=== PATIENT | male | born 1955 | race Caucasian/White ===

== ENCOUNTER 2016-03-30 08:47 | Inpatient (IN) ==
--- NOTE | 2016-03-30 08:58 | EKG Report ---
Test Performed on : 03/30/2016 08:50:12 AM Test Reason : CP Blood Pressure : / mmHG Vent. Rate : 071 BPM Atrial Rate : 071 BPM P-R Int : 130 ms QRS Dur : 102 ms QT Int : 402 ms P-R-T Axes : 018 081 141 degrees QTc Int : 436 ms Normal sinus rhythm. Inferior infarct (cited on or before 30-JUL-2013) Anterior infarct (cited on or before 30-JUL-2013) ST & T wave abnormality, consider lateral ischemia Abnormal ECG When compared with ECG of 30-JUL-2013 16:10, Significant changes have occurred Unconfirmed Result
[2016-03-30] MEDS ORDERED: ASPIRIN PO ONE (09:01)
[2016-03-30] MEDS ORDERED: ZOFRAN IV ONE (09:01)
[2016-03-30] MEDS ORDERED: MORPHINE IV ONE (09:01)
[2016-03-30] MEDS ORDERED: LASIX IV ONE ×3 (09:01→23:44)
[2016-03-30] MEDS ORDERED: SOLU-MEDROL IV ONE (09:03)
[2016-03-30] MEDS ORDERED: ASPIRIN PO STA (09:03)
--- NOTE | 2016-03-30 09:10 | PROVIDER DOCUMENTATION ---
HPI-Respiratory General - General Chief Complaint: Shortness of Breath Stated Complaint: SOB Time Seen by Provider: 03/30/16 08:56 Source: patient Allergies/Adverse Reactions: Patient Allergies Allergy/AdvReac Type Severity Reaction Status Date / Time No Known Allergies Allergy Verified 03/30/16 08:54 Home Medications: Home Medication List Medication Instructions Recorded Confirmed Last Taken Type Aspirin 81 mg 05/25/14 05/25/14 05/25/14 History Digoxin [Lanoxin] 0.125 mcg 05/25/14 05/25/14 Unknown History Furosemide [Lasix] 20 mg 05/25/14 05/25/14 Unknown History Lisinopril 5 mg PO DAILY #30 tablet 05/25/14 Unknown Rx Losartan [Cozaar] 50 mg 05/25/14 05/25/14 Unknown History Metoprolol Tartrate 25 mg 05/25/14 05/25/14 Unknown History Metoprolol [Lopressor] 25 mg PO BID #60 tablet 05/25/14 Unknown Rx Nitroglycerin [Nitrostat] 0.4 mg 05/25/14 05/25/14 Unknown History Spironolactone [Aldactone] 25 mg 05/25/14 05/25/14 Unknown History - History of Present Illness-Resp Nature of Presenting Problem: Pt is 60 y/o M presents to the ED with SOB and fatigue. Pt states the symptoms have been present for one week but have got worse. Pt denies CP and states having a hx of cardiac issues in the past. Pt states having 3 WI and having one stent placed. Pt states taking a breathing treatment this morning with mild relief. Pt states he is a smoker. Pt states being shocked two weeks ago due to defibrillator Quality of Pain: reports: aching Severity in ED: reports: mild Onset/Duration: reports: 1 week ago Timing: reports: still present, getting worse Exposure: reports: unknown cause Cough Quality/Degree: reports: dry cough Episode Frequency: frequent episodes Current Respiratory Medication Therapy: Initiated see nurses note Modifying Factors: improves with: nothing Associated Symptoms: reports: cough, shortness of breath, other (fatigue). denies: chest pain/soreness, dizziness, earache, facial pain, fever/chills, flu- like symptoms, headache, heart racing, hurts to breathe, hyperventilating, lightheadedness, muscle/bodyaches, nasal congestion, nasal drainage, sinus pain , short of breath, sore throat, sweaty, wheezing Similar Symptoms Previously?: Yes Recently seen or treated by another doctor?: No Review of Systems - Adult - REVIEW OF SYSTEMS - ADULT Constitutional: reports: danita. denies: chills, fever Eyes: denies: blurred vision, double vision Ears, Nose, Mouth & Throat: denies: ear pain, nose pain, throat pain Cardiovascular: denies: chest pain, heart murmur, irregular heart rate Respiratory: reports: cough, shortness of breath. denies: wheezing Gastrointestinal: denies: abdominal pain, diarrhea, nausea, vomiting Genitourinary: denies: dysuria, hematuria Musculoskeletal: denies: bone pain, joint pain, neck pain Integumentary: denies: hives, itching Neurological: denies: dizziness/vertigo, headache/migraines Psychiatric: reports: no symptoms reported Endocrine: reports: no symptoms reported Hematologic/Lymphatic: reports: no symptoms reported Allergic/Immunologic: reports: no symptoms reported All Other Systems: Reviewed and Negative Past History - Adult - PAST MEDICAL HISTORY-ADULT Review of Records: reports: Nursing Assessment Review, Medications Reviewed, Social history reviewed & non-contributory. Major Childhood Illnesses: reports: denies history Cardiovascular: reports: cardiac disease, CHF, HTN, heart valve problem ( replacement), WI Respiratory: reports: denies history Gastrointestinal: reports: denies history Obstetrical/Gynecological: reports: denies history Genitourinary: reports: denies history Musculoskeletal: reports: denies history Neurological: reports: denies history Endocrine/Immune: reports: denies history Other Conditions: reports: denies history - PRIOR SURGERIES/PROCEDURES Surgical/Procedure History: reports: cardiac stent, other (Right hand surgery, ICD placement) - PRIOR HOSPITALIZATIONS Prior Hospitalizations: reports: none - IMMUNIZATION STATUS Childhood Immunizations: See Nurse Assessment Flu Vaccine: See Nurse Assessment - FAMILY HISTORY Family History: reviewed, not pertinent - SOCIAL HISTORY Smoking: cigarettes, greater than 1 pack/day Provider spent 3-5 mins advising pt. on dangers of tobacco.: Discussed manners to quit use, and f/u contacts for add'l counseling. Substance Use: alcohol Alcohol Use Frequency: occasionally Number of drinks per typical drinking period:: 2 drinks Living Situation: family Physical Exam-General - PHYSICAL EXAM-ADULT Initial Vital Signs Reviewed: Yes - CONSTITUTIONAL General Appearance: alert, mild distress, slow to respond. negative: appears well (ill in appearance) - EYES Eyes: PERRL/EOMI, pink conjunctivae, fundi clear, no AV nicking - HEAD, EARS, NOSE, MOUTH & THROAT HENMT: normocephalic/atraumatic, moist mucous membranes, normal ENT inspection, TMs normal, pharynx normal - NECK Neck: non-tender, full range of motion, supple, normal inspection - RESPIRATORY Respiratory: chest non-tender, lungs clear, no pleuratic chest pain, no respiratory distress, no accessory muscle use, decreased breath sounds - CARDIOVASCULAR Cardiovascular: normal peripheral pulses, regular rate, rhythm, no edema, no gallop, no JVD, no murmur - GASTROINTESTINAL (ABDOMEN) Abdominal Exam: normal bowel sounds, non tender, soft, no organomegaly, no pulsatile mass - LYMPHATIC Lymphatic: no adenopathy - MUSCULOSKELETAL Back Exam: normal inspection, no CVA tenderness, no vertebral tenderness Extremity: normal range of motion, non-tender, normal gait, normal inspection, no pedal edema, no calf tenderness, normal capillary refill, pelvis stable - SKIN Integumentary: normal color, normal turgor, warm/dry - NEUROLOGIC Neurologic: sash finisher II-XII nml as tested, grossly normal, no motor/sensory deficits - PSYCHIATRIC Psych/Mental Status: normal mood/affect, normal thought content, normal thought process, oriented x 3 Progress - PLAN OF CARE/RESULTS Progress/Plan/Lab Results: Orders Category Date Time Status Cardiac Monitoring DIRECTED Care 03/30/16 09:03 Active Oxygen Therapy- ED Nursing DIRECTED Care 03/30/16 09:03 Active Saline Loc NOW Care 03/30/16 09:03 Active CBC WITH ELECTRONIC DIFF [HEME] Stat Lab 03/30/16 09:03 Ordered CK PROFILE [SP CHEM] Stat Lab 03/30/16 09:03 Ordered COMPREHENSIVE METABOLIC PANEL [CHEM] Stat Lab 03/30/16 09:[address] D-D[address]ER [address] [COAG] Stat Lab 03/30/16 09:03 Ordered MAGNESIUM [CHEM] Stat Lab 03/30/16 09:03 Ordered PRO B-NATRIURETIC PEPTIDE Stat Lab 03/30/16 09:[address]IME WITH INR PL [COAG] Stat Lab 03/30/16 09:[address] [COAG] Stat Lab 03/30/16 09:03 Ordered TROPONIN T Stat Lab 03/30/16 09:03 Ordered Aspirin Med 03/30/16 09:01 Discontinued 325 mg PO NOW ONE Aspirin Med 03/30/16 09:03 Discontinued 325 mg PO STAT STA Furosemide [Lasix] Med 03/30/16 09:01 Discontinued 40 mg IV NOW ONE Methylprednisolone Sod Succ [Solu-Medrol] Med 03/30/16 09:03 Discontinued 125 mg IV NOW ONE Morphine Med 03/30/16 09:01 Discontinued 2 mg IV NOW ONE Ondansetron [Zofran] Med 03/30/16 09:01 Discontinued 4 mg IV NOW ONE EKG [EKG] Stat Ther 03/30/16 08:54 Draft EKG [EKG] Stat Ther 03/30/16 09:03 Ordered Vital Signs - 24 hr 03/30/16 03/30/16 08:51 08:57 Pulse Rate 72 78 Respiratory 22 24 Rate Blood Pressure 143/112 162/102 O2 Sat by Pulse 98 99 Oximetry Laboratory Tests 03/30/16 03/30/16 03/30/16 08:50 09:11 09:11 WBC 8.45 RBC 4.18 L Hgb 12.4 L Hct 37.6 L MCV 90.0 MCH 29.7 MCHC 33.0 RDW Std Deviation 14.1 Plt Count 181 MPV 11.6 H Immature Gran % (Auto) 0.0 Neut % (Auto) 77.0 H Lymph % (Auto) 13.5 L Rutherford % (Auto) 7.3 Eos % (Auto) 1.8 Baso % (Auto) 0.4 Immature Gran # (Auto) 0.00 Neut # (Auto) 6.51 H Lymph # (Auto) 1.14 L Rutherford # (Auto) 0.62 H Eos # (Auto) 0.15 Baso # (Auto) 0.03 PT 14.5 INR 1.10 APTT (Factor Assay) 24.9 POC Glucose 99 - EKG 1 Time of EKG reading by physician:: 11:32 EKG Read and Signed by:: Samuel Faulkner EKG Interpretation (*Must complete 3 of following elements*): Abnormal Rate: 69 Rhythm: normal sinus rhythm Comments: inferior infarct, age undetermined; anterolateral infarct, age undetermined - XRAY 1 XRAY: Bilateral XRAY Study: Chest Impression: Abnormal XRAY Interpretation: VASC imelda and edema w B effusion - CONSULTS/PCP/HOSPITALIST Notification #1 *Consult/PCP/Hospitalist*: Dr. Orozco Time Discussed: 10:18 (Dr. Orozco accepted admit ) Reason/Comments: Dr. Faulkner consulted with Dr. Orozco about admit of Pt Consult Disposition: Admit Departure - Departure Time of Disposition Order: 10:18 DIAGNOSIS: SOB (shortness of breath) CHF (congestive heart failure) Qualifiers: Congestive heart failure type: unspecified congestive heart failure type Congestive heart failure chronicity: unspecified congestive heart failure chronicity Qualified Code(s): I50.9 - Heart failure, unspecified Disposition: ADMITTED INPATIENT 09 Certified Medical Emergency: Emergent Condition: Stable Attestation - Scribe Verification/Attestation Scribe:: Keisha Gee Acting as Scribe for:: Samuel Faulkner Scribe documention review:: This chart was documented by a scribe and accurately reflects the service the provider performed and the decisions made by the provider.
[2016-03-30 09:16] LABS: MANUAL DIFF NEEDED? NO
[2016-03-30 09:17] LABS: BASO% 0.4 % (0.0-0.8); EOS# 0.15 X1000 (0.0-0.7); EOS% 1.8 % (0.0-10.0); HEMATOCRIT 37.6 % (42.0-52.0); HEMOGLOBIN 12.4 g/dL (14.0-18.0); LYMPH# 1.14 X1000 (1.2-3.4); LYMPH% 13.5 % (20.5-51.1); MCH 29.7 PG (27-31); MONO# 0.62 X1000 (0.11-0.59); MONO% 7.3 % (1.7-9.3); MPV 11.6 FL (7.4-10.4); PLT 181 X1000 (130-400); RBC 4.18 XMIL (4.7-6.1)
[2016-03-30 09:31] LABS: INR 1.1 (0.86-1.15); PROTIME 14.5 Seconds (12.1-15.5)
[2016-03-30 09:32] LABS: PTT PL 24.9 Seconds (22.6-43.9)
[2016-03-30] MEDS ORDERED: ROCEPHIN 1 GM/NS 50 ML IV ONE (10:03)
[2016-03-30] MEDS ORDERED: DUONEB (A & A) INH ONE (10:03)
--- NOTE | 2016-03-30 10:04 | Diag Imaging Result Document ---
PROCEDURE NAME: CHEST-2 VIEWS - 03/30/2016 CHEST, TWO VIEWS: COMPARISON: 08/01/2014 and 05/25/2013. INDICATION: Shortness of breath. FINDINGS: There is cardiomegaly with a left transvenous pacemaker. There is pulmonary vascular congestion with pulmonary edema and bilateral pleural effusions. Metallic foreign bodies projecting in the soft tissues of the right arm are unchanged. IMPRESSION: Findings suggesting developing cardiogenic edema.
[2016-03-30 10:17] LABS: ALBUMIN 3.8 g/dL (3.5-5.0); CALCIUM 9.1 mg/dL (8.8-10.2); MAGNESIUM 1.9 mg/dL (1.5-2.7); POTASSIUM 3.7 mmol/L (3.5-5.1); TOTAL BILIRUBIN 0.4 mg/dL (0.20-1.00); TOTAL PROTEIN 6.9 g/dL (6.3-8.3)
[2016-03-30] MEDS ORDERED: TYLENOL PO PRN (10:19)
[2016-03-30] MEDS ORDERED: ZOFRAN IV PRN (10:19)
[2016-03-30] MEDS: DUONEB (A & A) INH SCH ×3 (11:30→20:36)
[2016-03-30 11:39] LABS: BE -0.2 mmoll (-3.0-3.0); BLOOD TYPE ARTERIAL; DRAW SITE L BRACHIAL; METHB 1.5 % (0.0-1.5); O2(CT) 18.3 mL/dL (15.0-23.0); PCO2(98.6) 30 mmHg (35-45); PO2(98.6) 66 mmHg (60-100); SAMPLE BLOOD; SAO2 95.3 % (95.0-100.0); THB 14.3 g/dL (11.5-17.4); pH(98.6) 7.48 (7.35-7.45)
--- NOTE | 2016-03-30 11:40 | EKG Report ---
Test Performed on : 03/30/2016 11:32:12 AM Test Reason : CHEST PAIN Blood Pressure : / mmHG Vent. Rate : 069 BPM Atrial Rate : 069 BPM P-R Int : 166 ms QRS Dur : 106 ms QT Int : 424 ms P-R-T Axes : 061 072 201 degrees QTc Int : 454 ms Normal sinus rhythm. Inferior infarct (cited on or before 30-JUL-2013) Anterolateral infarct (cited on or before 30-JUL-2013) Abnormal ECG When compared with ECG of 30-MAR-2016 08:50, (Unconfirmed) No significant change was found Unconfirmed Result
[2016-03-30 11:44] LABS: ALLEN TEST YES; MODALITY ROOM AIR
[2016-03-30] MEDS ORDERED: ATIVAN IV ONE (13:44)
--- NOTE | 2016-03-30 15:09 | Diag Imaging Result Document ---
PROCEDURE NAME: LUNG SCAN / VQ - 03/30/2016 VENTILATION PERFUSION LUNG SCAN NUCLEAR MEDICINE STUDY: TECHNIQUE: 39.4 mCi DTPA administered for the ventilation images. 5.9 mCi MAA administered for the perfusion images. FINDINGS: Compared to a recent plain film. No wedge-shaped perfusion defects. No ventilation perfusion mismatches. IMPRESSION: Low probability for pulmonary embolus. [facility]
[2016-03-30] MEDS: LOPRESSOR PO SCH (20:11)
[2016-03-30] MEDS ORDERED: LASIX PO ONE (23:22)
[2016-03-30] MEDS ORDERED: NITROGLYCERIN SL PRN (23:37)
[2016-03-31] MEDS: DUONEB (A & A) INH SCH ×7 (00:42→23:05)
[2016-03-31] MEDS: LOPRESSOR PO SCH ×2 (08:42→21:37)
[2016-03-31] MEDS: ASPIRIN PO SCH (08:42)
[2016-03-31] MEDS: LASIX PO SCH (08:42)
[2016-03-31] MEDS: LANOXIN PO SCH (08:42)
[2016-03-31] MEDS ORDERED: LASIX IV ONE (10:39)
--- NOTE | 2016-03-31 15:24 | Diag Imaging Result Document ---
PROCEDURE NAME: CHEST-2 VIEWS - 03/31/2016 TWO VIEWS OF THE CHEST: FINDINGS: There is cardiomegaly. There is improvement in the interstitial edema present on 03/30/2016, and the pleural effusions are also decreased in volume. IMPRESSION: Improved pulmonary edema and pleural effusions.
--- NOTE | 2016-03-31 15:54 | CONSULTATION ---
DATE OF CONSULTATION: 03/31/2016 INDICATION: Congestive heart failure. HISTORY OF PRESENT ILLNESS: Mr. De Leon is a 60-year-old, white male with a history of systolic heart failure. He presented for evaluation of shortness of breath that has been worsening over the last couple weeks. The patient is a difficult historian. It sounds like he possibly has not been adhering to his usual medication regimen at home. He does not report any significant sodium indiscretion. He has not had any recent fevers, but there has been some dry cough. He has had episodic chest pain which he attributed to reflux occurring 1 night over the last couple of weeks. He is not able to characterize that further. PAST MEDICAL HISTORY: Significant for: 1. Systolic heart failure with ICD implantation. 2. Ischemic cardiomyopathy. 3. Ventricular tachycardia status post ICD implantation. FAMILY HISTORY: Hypertension. SOCIAL HISTORY: He does smoke. He does occasionally use alcohol. No illicit drugs. REVIEW OF SYSTEMS: A 10 system review of systems is negative, except for those mentioned in HPI. PHYSICAL EXAMINATION: Vital Signs: The patient is afebrile. Heart rate of 85, blood pressure 108/62. His presenting blood pressure was 143/112. General: He is in no acute distress. HEENT: Oropharynx is moist. Poor dentition. Eye examination is pink conjunctivae, white sclerae. Neck: Examination shows no obvious thyromegaly or thyroid tenderness. Cardiovascular: He is in a regular rate and rhythm. He has no obvious murmurs. He has no S3. He has no lower extremity edema. Chest: Exam is clear bilaterally. With exception of some very mild rales in the bilateral bases, no increased work of breathing. Abdomen: Soft, nontender, nondistended. He has no obvious organomegaly. Skin Exam: Warm and dry throughout without any rashes. Neurological exam: Moving all extremities well. Cranial nerves 2-12 are intact without any sensation deficits. Psychiatric: Alert, oriented and pleasant. He has normal mood and affect. PERTINENT DATA: His EKG on the eighth at 11:32 a.m. shows what appears to be an inferior scar, sinus rhythm, rate of 69 beats per minute. EKG at 8:50 a.m. yesterday shows sinus rhythm again, inferior scar noted. He had a myocardial perfusion scan performed in May 2014 showing an EF of 30, as well as inferior lateral scar. V/Q scan was low probability for pulmonary embolus. Chest x-ray shows suggestion of pulmonary edema. White count is 8.4, hematocrit 37.6, platelet count is 181. His INR is 1.1. His D-dimer is 2.6. His ABG had a pH of 7.4, a pCO2 of 30, PO2 is a 66. His sodium is 136, potassium 3.7, his BUN is 18, creatinine 1.6. His proBNP was 9888. ASSESSMENT: Acute systolic heart failure. PLAN: Currently the patient has diuresed quite aggressively. I agree with the metoprolol as he is currently on which was his home medication, including his Lasix 20 mg daily. I am not exactly sure what other medications that the patient is on, given that he is not able to provide much history and seems like he has had some issues with medication compliance in the recent past, as he is not very adept at his medication list. His systolic pressure is a bit low here at 108; we will watch this overnight and consider possible low dose of ROXY inhibitor in the morning. This patient will be somewhat difficult to treat given his somewhat marginal pressures. I agree with the medications as presently being used.
[2016-04-01] MEDS: DUONEB (A & A) INH SCH ×3 (03:49→11:24)
[2016-04-01] MEDS: ASPIRIN PO SCH (08:45)
[2016-04-01] MEDS: LASIX PO SCH (08:45)
[2016-04-01] MEDS: LOPRESSOR PO SCH (08:45)
[2016-04-01] MEDS: LANOXIN PO SCH (08:45)
[2016-04-01 11:19] VITALS: BP 120/75
--- NOTE | 2016-04-01 15:09 | ECHO REPORT ---
ORDER DATE: 04/01/2016 INDICATION: CHF. FINDINGS: 1. The right atrium is moderate to severely enlarged with a dimension of 5.5 cm. Linear artifact consistent with device leads is noted. 2. Mild tricuspid regurgitation. RV systolic pressure of 42. 3. There is mild reduction in RV systolic function with mild enlargement of the right ventricle. 4. Trace pulmonic insufficiency. 5. Mild left atrial enlargement at 4.7. 6. There is a well-seated prosthetic in the mitral position. Peak gradient across valve is 15 with a mean of 5. There does not appear to be any significant perivalvular leak. 7. Left ventricle was dilated with an end-diastolic dimension of 5.8. There is mild left ventricular hypertrophy with a posterior and interventricular septal wall thickness of 1.2 and 1.3 cm respectively. There is severe global hypokinesis. The calculated EF of 21%. In addition, the inferior wall appears to be somewhat aneurysmal, thinned out and hyperechoic consistent with previous RI. 8. Aortic valve opens well and appears trileaflet. No evidence of stenosis or insufficiency. 9. Aorta appears normal in visualized segments. 10. No pericardial effusion seen.
[2016-04-01] MEDS ORDERED: ENTRESTO 24 MG-26 MG TABLET PO SCH (21:00)
--- NOTE | 2016-04-27 22:41 | HISTORY AND PHYSICAL ---
HISTORY OF PRESENT ILLNESS: This patient is a 60-year-old male with a longstanding history of ischemic heart disease who presented to the emergency room with shortness of breath and fatigue. The patient states that this has been going on for approximately a week but it has gotten worse today. He denies chest pain and states having a history of cardiac issues in the past. He states he has had 3 MIs. He had 1 stent placed. He also has a defibrillator. Patients states taking a breathing treatment this morning with mild relief. He is an ongoing smoker. The patient states being shocked 2 weeks ago due to the defibrillator. He has no allergies. On arrival he has taken aspirin. He is on digoxin 0.125, furosemide 20, 5 mg of lisinopril daily, losartan 50 daily, metoprolol 25 b.i.d., nitroglycerin 0.4, spironolactone 25. He describes his pain as an aching pain that is mild. It has been off and on for a week. It is still present. It seems to be getting worse. He has a dry nonproductive cough. He has been having frequent episodes of the same. He mostly complains of cough, shortness of breath and fatigue. He was admitted from the ER. REVIEW OF SYSTEMS: Constitutional: He denies any chills, fever, weight gain or weight loss. Eyes: No blurry vision, double vision, eye discharge or field cut. Ears, Nose and Throat: No sinusitis, otitis or pharyngitis. Cardiovascular: He denies any chest pain. He has tightness in his chest. He denies a heart murmur or irregular heart rate recently. He is frequently defibrillated apparently from his history. Gastrointestinal: He denies any abdominal pain, diarrhea, nausea, vomiting. Genitourinary: He denies dysuria or hematuria. Musculoskeletal: He denies bone pain, joint pain, and neck pain. Skin: No hives or itching. Neurological: No dizziness or vertigo. No seizure disorder. No headaches. No migraines. Psychiatric: Negative. Endocrine: No polyuria, polydipsia, polyphagia. No heat or cold intolerance. He has no bleeding or clotting disorder. No anemia. Allergy: No asthma, hay fever or eczema. PAST MEDICAL HISTORY: Pertinent in that he has a longstanding history of COPD, smoking, cardiac disease and heart failure. He had a heart valve replacement. He has had a previous [place]. He has a defibrillator. He has had cardiac stents. He has had right hand surgery. He has had ICD placement. SOCIAL HISTORY: He continues to smoke. He drinks alcohol occasionally 2 drinks at a time. PHYSICAL EXAMINATION: VITAL SIGNS: At time of admission his pulse rate was 72, respiratory 22, blood pressure 143/112, O2 saturation was 98. HEENT: Head was normocephalic. He was mildly distressed. PERRLA. EOMs intact. Sclerae clear. Fundi benign. Nares patent. Oropharynx negative. NECK: Midline trachea. No lymphadenopathy, no thyromegaly. No carotid bruits. LUNGS: He had rhonchi. His chest was nontender. No respiratory distress. No accessory muscle use. He did have decreased breath sounds. CARDIOVASCULAR: Peripheral pulses were palpable. He had regular rhythm and rate. No edema, gallop, JVD or murmur. ABDOMEN: Soft, nontender. No organomegaly. No pulsatile masses. Normal bowel sounds. LYMPHATIC: No lymphadenopathy. EXTREMITIES: Negative for clubbing, cyanosis, or edema. VASCULAR: Normal capillary refill. MUSCULOSKELETAL: No CVA tenderness. No spinal tenderness. SKIN: Clear. NEUROLOGIC EXAMINATION: Symmetrical. PSYCHIATRIC EXAMINATION: Negative. DATABASE: In the ER includes the following: He had a white count of 8450, his hematocrit was 37.6, platelet count was 181,000, random blood sugar 99, INR 1.10. EKG was read as abnormal, infarct age undetermined, anterior lateral infarct age undetermined. Chest x-ray: Vasocongestion with edema with bilateral effusions. There are no beds available . After this patient was evaluated we agreed to put him in the hospital.
--- NOTE | 2016-04-28 06:57 | DISCHARGE SUMMARY ---
ADMISSION DATE: 03/30/2016 DISCHARGE DATE: 04/01/2016 HISTORY: This patient has ischemic heart disease. He had stents placed. He has a history of congestive heart failure and a low systolic ejection fraction. He has had a defibrillator placed. He has had a valve replacement as well. He presented to the Emergency Room with some shortness of breath and some tightness in his chest. He was evaluated there and subsequently hospitalized. He had shortness of breath and congestive heart failure. The following images he had a lung V/Q scan because of the shortness of breath. It was deemed to have a low probability of pulmonary embolus. Chest x-ray on admission cardiomegaly with a left transvenous pacemaker. There is pulmonary vascular congestion with pulmonary edema and bilateral pleural effusions. Metallic foreign bodies projecting in the soft tissues of his right arm. After aggressive Lasix therapy, he had a subsequent follow up chest x-ray the next day, which showed improved pulmonary edema and pleural effusions. He had an echocardiogram done that showed right atrial enlargement, mild tricuspid regurgitation. Mild reduction in the right ventricular systolic function. Trace pulmonary insufficiency. Mild left atrial enlargement of 4.7. There is a well-seated prosthetic valve in the mitral position. There does not appear to be any significant perivalvular leak. The left ventricle was dilated. There was mild left ventricular hypertrophy with posterior and intraventricular septal wall thickness of 1.2 and 1.3. Severe global hypokinesis. Calculated ejection fraction was 21%. Also, in addition the inferior wall appeared to be somewhat aneurysmal, thinned out, hyperechoic consistent with previous GA. The aortic valve opens well. It appears trileaflet. No pericardial effusion. EKG with sinus rhythm, inferior infarct, anterolateral infarct are all old. Otherwise no significant change. His D-dimer was 2.63. Hence the V/Q scan was basically negative. Blood gases show PO2 was 66. PCO2 was 30. The pH was 7.48 on room air. Lactate was 1.3. The carboxyhemoglobin elevated at 3.2. His serial cardiac enzymes were negative. His BNP was 10,000. He was discharged and will be followed up in the office. He has been given samples of Ranexa in the office. He is breathing much better. He has had Lasix in the past, and he has not been consistently taking them he admits so he has high blood pressure. albeit 20%, CHF, history of ventricular tachycardia. He had a pacemaker defibrillator. He has COPD and is a smoker. He has mitral valve replacement. He was in the hospital from 03/30 until 04/01.
== END 2016-04-01 15:25 | disposition home or self-care (01) | DRG 293 ==
LOC: P.ED 08:47 → P.MEDSURG 11:04
PROVIDERS: ADMIT Internal Medicine; ATTEND Internal Medicine
DX: I11.0 Hypertensive heart disease with heart failure (principal); Z95.2 Presence of prosthetic heart valve; J44.9 Chronic obstructive pulmonary disease, unspecified; F17.210 Nicotine dependence, cigarettes, uncomplicated; I50.23 Acute on chronic systolic (congestive) heart failure; I25.5 Ischemic cardiomyopathy; I25.2 Old myocardial infarction; I25.10 Atherosclerotic heart disease of native coronary artery without angina pectoris; Z95.5 Presence of coronary angioplasty implant and graft; Z95.810 Presence of automatic (implantable) cardiac defibrillator; Z82.49 Family history of ischemic heart disease and other diseases of the circulatory system; Z79.82 Long term (current) use of aspirin; Z79.899 Other long term (current) drug therapy; Z91.14 Patient's other noncompliance with medication regimen
CPT/HCPCS: 36415; 71020; 78582; 80053; 82550; 82805; 82948; 83735; 83880; 84484; 85025; 85379; 85610; 85730; 87040; 93005; 93306; 94640; 94761; 96365; 96375; 96376; A9539; A9540; J0696; J1940; J2060; J2270; J2405; J2930